=== PATIENT | male | born 1980 | race African-American/Black ===

== ENCOUNTER 2017-07-15 20:54 | Observation (INO) | payer SELFPAY ==
[~2017-07-15] VITALS: Ht 182.9 cm; Wt 70.8 kg
[~2017-07-15 20:54] MED LIST: NAPROSYN500 MG PO; NORVASC5 MG PO; TAM75CAP PO; ZOFRAN ODT4 MG SL
[2017-07-15] MEDS ORDERED: ZANTAC 150 PO (21:31)
[2017-07-15 22:08] LABS: IMMATURE GRANULOCYTES 0.8 % (0.0-1.0); MEAN CORPUSCULAR HGB 23.1 pG CALC (26.0-32.0); MEAN CORPUSCULAR HGB CONC 29.6 g/L CALC (32.0-36.0); NEUT# 5.7 thou/uL (1.82-7.42); RED BLOOD COUNT 3.64 mill/uL (4.70-6.10); RED CELL DISTRI WIDTH 16.9 % (11.5-15.5)
[2017-07-15 22:12] LABS: HEMATOCRIT 28.4 % (39.0-50.0); HEMOGLOBIN 8.4 g/dl (14.0-18.0)
[2017-07-15 22:23] LABS: ALBUMIN 3.8 g/dL (3.2-5.0); ALKALINE PHOSPHATASE 87 u/l (38-126); AMYLASE < 30 u/l (30-110); BILIRUBIN, TOTAL 0.2 mg/dL (0.0-1.4); BUN 15 mg/dL (9-20); BUN/CREATININE RATIO 17 (12-20 (CALC)); CARBON DIOXIDE 26 mmol/l (22-30); CHLORIDE 96 mmol/l (95-108); CREATININE 0.9 mg/dL (0.7-1.3); GFR > 60 ML/MIN (>=60 (CALC)); GFR FOR AFR.AMER. > 60 ML/MIN (>=60 (CALC)); LIPASE 31 u/l (23-300); SGOT/AST 17 u/l (17-59); SGPT/ALT 23 u/l (21-72); SODIUM 139 mmol/l (137-146)
[2017-07-15 22:25] LABS: ANION GAP 21 (6-22 (CALC)); POTASSIUM 3.5 mmol/l (3.5-5.1)
--- NOTE | 2017-07-15 22:27 | NUR ---
Critical Lactic acid level of 4.1 per Fuad in lab
--- NOTE | 2017-07-15 23:00 | NUR ---
PT STATES THAT PAIN IS SOMEWHAT BETTER. ASKING TO BE UNHOOKED FROM FLUIDS TO USE RESTROOM.
--- NOTE | 2017-07-16 00:05 | NUR ---
pt resting comfortably in room. Door closed, lights off. Pt says that he prefers to have covers over head.
--- NOTE | 2017-07-16 01:00 | NUR ---
Pt up to restroom. Asked if pt remembered urine for UA, Advised that he forgot about needing urine. Reassured staff that he will remember next time.
--- NOTE | 2017-07-16 02:00 | NUR ---
pt resting comfortably at this time. UA obtained and sent to lab. ED physician attmpting to admit pt with Diverticulitis.
[2017-07-16 02:02] LABS: URINE BILIRUBIN - DIPSTICK NEGATIVE (NEGATIVE); URINE BLOOD DIPSTICK NEGATIVE (NEGATIVE); URINE COLOR YELLOW; URINE GLUCOSE - DIPSTICK NEGATIVE (NEGATIVE); URINE KETONE NEGATIVE (NEGATIVE); URINE LEUK ESTERASE NEGATIVE (NEGATIVE); URINE NITRITE - DIPSTICK NEGATIVE (Negative); URINE PH 6.5 (4.5-8.0); URINE PROTEIN - DIPSTICK NEGATIVE (NEG-TRACE); URINE SPECIFIC GRAVITY <=1.005; URINE UROBILINOGEN - DIPSTICK 0.2 E.U./dL (0.2)
[2017-07-16 02:06] LABS: URINE CLARITY CLEAR
[2017-07-16 03:20] VITALS: BP 132/87
--- NOTE | 2017-07-16 03:30 | NUR ---
Report called to Brittany CARBAJAL @ [id number],report given and advised that only Flagyl will be given in the ED and the other antibiotic will have to be given on floor. Pt transprted to floor via emili.
--- NOTE | 2017-07-16 04:00 | NUR ---
PATIENT ADMITTED FROM ER VIA STRETCHER WITH ER STAFF IN ATTENDANCE. PATIENT TRANSFERRED TO STANDING SCALE AND THEN TO BR TO VOID-STEADY GAIT. PATIENT THEN WENT TO BED. PATIENT IS AWAKE ALERT AND ORIENTEDX3. INSTRUCTED NPO AT THIS TIME. IV SITE TO LEFT AC WITH LEVAQUIN INFUSING ORDERED. SITE APPEARS HEALTHY AT THIS TIME. PATIENT STATES THAT HE HAD BM YESTERDAY. ABD IS SOFT WITH BS+. PATIENT ORIENTED TO ROOM AND SURROUDINGS. INSTRUCTED ONUSE OF NURSE CALL LIGHT SYSTEM, TELEPHONE, AND TV REMOTE. SAFETY PRECAUTIONS REVIEWED WITH PATIENT. CALL LIGHT IN REACH. WILL CONT TO MONITOR.
--- NOTE | 2017-07-16 06:00 | NUR ---
PATIENT APPEARS SLEEPING AT THIS TIME WITH SHEETS OVER HIS HEAD. IVF D51/2NS PATENT AND INFUSING AT 125CC/HR. CALL LIGHT IN REACH. WILL CONT TO MONITOR.
[2017-07-16 08:10] VITALS: BP 136/85
--- NOTE | 2017-07-16 08:10 | NUR ---
PT RESTING IN SUPINE POSITION WITH FAMILY AT BEDSIDE;VS OBTAINED AND ASSESSMENT COMPLETED;RESPIRATIONS EVEN AND UNLABORED ON RA,CLEAR LUNG SOUNDS NOTED;ABDOMEN SOFT ON PALPATION;#20G TO LAC INFUSING D5 1/2 @ 125ML/HR,SITE APPEARS HEALTHY;PT VOICES NO COMPLAINTS OF PAIN OR DISCOMFORTS;PT RE-EDUCATED ON NPO DIET STATUS AND VERBALIZES UNDERSTANDING;SKIN INTACT;URINAL AT BEDSIDE;ENCOURAGED PT TO CALL FOR ASSISTANCE IF NEEDED;CALL LIGHT IN REACH;WILL CONTINUE TO MONITOR
[2017-07-16 10:18] LABS: IMMATURE GRANULOCYTES 0.2 % (0.0-1.0); MEAN CORPUSCULAR HGB 30.5 pG CALC (26.0-32.0); NEUT# 2.5 thou/uL (1.82-7.42); RED BLOOD COUNT 4.72 mill/uL (4.70-6.10); RED CELL DISTRI WIDTH 12.2 % (11.5-15.5)
[2017-07-16 10:26] LABS: HEMATOCRIT 42.4 % (39.0-50.0); HEMOGLOBIN 14.4 g/dl (14.0-18.0); MEAN CELL VOLUME 89.8 fL CALC (80.0-100.0)
[2017-07-16 10:50] LABS: BUN 5 mg/dL (9-20); BUN/CREATININE RATIO 5 (12-20 (CALC)); CARBON DIOXIDE 27 mmol/l (22-30); CREATININE 0.9 mg/dL (0.7-1.3); GFR > 60 ML/MIN (>=60 (CALC)); GFR FOR AFR.AMER. > 60 ML/MIN (>=60 (CALC)); MAGNESIUM 1.8 mg/dL (1.6-2.3); SODIUM 140 mmol/l (137-146)
[2017-07-16 10:51] LABS: ANION GAP 10 (6-22 (CALC)); CHLORIDE 108 mmol/l (95-108); POTASSIUM 4.5 mmol/l (3.5-5.1)
--- NOTE | 2017-07-16 12:30 | NUR ---
PT RESTING IN SEMI FOWLERS POSITION TOLERATING A CLEAR LIQUID DIET WELL;IV SITE PATENT INFUSING NS @ 100ML/HR;PT DENIES ANY PAIN OR DISCOMFORTS;ENCOURAGED TO CALL FOR ASSISTANCE IF NEEDED;CALL LIGHT IN REACH;WILL CONTINUE TO MONITOR
[2017-07-16] MEDS ORDERED: METRONIDAZOL500 MG PO (16:14)
[2017-07-16] MEDS ORDERED: CIPROFLOXACN500 MG PO (16:14)
[2017-07-16 16:41] VITALS: BP 131/87
--- NOTE | 2017-07-16 16:42 | NUR ---
Saw pt for discharge med education. Explained how meds work and cautioned against disulfiram-like rxn w/ metronidazole. Pt explained he doesn't drink anyway. Pt explained that he doesn't understand his diagnosis. Dr. Meyers and Ramonita were alerted. Pt had no further questions or concerns.
--- NOTE | 2017-07-16 17:15 | NUR ---
PT RESTING IN SEMI FOWLERS POSITION WATCHING TV;IV SITE PATENT;PT VOICES NO COMPLAINTS OF PAIN OR DISCOMFORTS;RESPIRATIONS EVEN AND UNLABORED ON RA;ENCOURAGED PO FLUIDS;CALL LIGHT IN REACH;WILL CONTINUE TO MONITOR
--- NOTE | 2017-07-16 17:43 | NUR ---
Discharge instructions given. Patient verbalizes understanding of same. Discharged in stable condition via Ambulatory to Home with family. All belongings sent with pt.
== END 2017-07-16 17:48 | disposition home or self-care (01) | DRG 392 ==
LOC: ED 20:54 → ED-I 07-16 02:10 → ED 07-16 02:26 → MS2 07-16 02:27
PROVIDERS: Emergency Medicine; Nurse Practitioner Family; ADMIT Internal Medicine; ATTEND Internal Medicine
DX: K52.9 Noninfective gastroenteritis and colitis, unspecified (principal); E87.2 Acidosis; D64.9 Anemia, unspecified; K40.90 Unilateral inguinal hernia, without obstruction or gangrene, not specified as recurrent; F17.210 Nicotine dependence, cigarettes, uncomplicated
CPT/HCPCS: G0378; J1956; S0164

== ENCOUNTER 2018-01-28 11:27 | Emergency (ER) | payer OTHER ==
[~2018-01-28] VITALS: Ht 182.9 cm; Wt 75.0 kg
[~2018-01-28 11:27] MED LIST changes: +CIPROFLOXACN500 MG PO; +METRONIDAZOL500 MG PO; +ZANTAC 150 PO
[2018-01-28] MEDS ORDERED: CYCLOBENZAPR5 MG PO (12:58)
[2018-01-28 13:21] VITALS: BP 132/98
== END 2018-01-28 13:24 | disposition home or self-care (01) | DRG 563 ==
LOC: ED 11:27
DX: S39.012A Strain of muscle, fascia and tendon of lower back, initial encounter (principal); M54.5 Low back pain; X50.0XXA Overexertion from strenuous movement or load, initial encounter; Y93.89 Activity, other specified; Y99.0 Civilian activity done for income or pay

== ENCOUNTER 2020-07-04 01:44 | Emergency (ER) | payer BC ==
[~2020-07-04] VITALS: Ht 182.9 cm; Wt 79.0 kg
[~2020-07-04 01:44] MED LIST changes: +CYCLOBENZAPR5 MG PO
[2020-07-04 03:38] LABS: URINE BILIRUBIN - DIPSTICK NEGATIVE (NEGATIVE); URINE BLOOD DIPSTICK NEGATIVE (NEGATIVE); URINE COLOR YELLOW; URINE GLUCOSE - DIPSTICK NEGATIVE (NEGATIVE); URINE KETONE NEGATIVE (NEGATIVE); URINE LEUK ESTERASE NEGATIVE (NEGATIVE); URINE NITRITE - DIPSTICK NEGATIVE (Negative); URINE PROTEIN - DIPSTICK 30 mg/dL (NEG-TRACE); URINE SPECIFIC GRAVITY >=1.030
[2020-07-04 03:41] LABS: HEMATOCRIT 48.2 % (39.0-50.0); HEMOGLOBIN 16.3 g/dl (14.0-18.0); IMMATURE GRANULOCYTES 0.2 % (0.0-5.0); MEAN CELL VOLUME 90.1 fL CALC (80.0-100.0); MEAN CORPUSCULAR HGB 30.5 pG CALC (26.0-32.0); MEAN CORPUSCULAR HGB CONC 33.8 g/dL CAL (32.0-36.0); NEUT# 2.51 thou/uL (1.82-7.42); RED BLOOD COUNT 5.35 mill/uL (4.70-6.10); RED CELL DISTRI WIDTH 12.8 % (11.5-15.5)
[2020-07-04] MEDS ORDERED: TRAZODONE100 MG PO (03:47)
[2020-07-04] MEDS ORDERED: NORVASC5 M1 PO (03:48)
[2020-07-04 03:51] LABS: URINE RBC 0-2 RBC/hpf (0-5); URINE SQUAMOUS EPITHELIAL CELL FEW EPI/hpf (0-FEW)
[2020-07-04 03:58] LABS: ALBUMIN 4.4 g/dL (3.2-5.0); ALKALINE PHOSPHATASE 60 u/l (38-126); AMYLASE 190 u/l (30-110); ANION GAP 10 (6-22 (CALC)); BUN 9 mg/dL (9-20); BUN/CREATININE RATIO 10 (12-20 (CALC)); CARBON DIOXIDE 27 mmol/l (22-30); CHLORIDE 101 mmol/l (95-108); CREATININE 0.9 mg/dL (0.7-1.3); ETHYL ALCOHOL 0 mg/dl (0-30); GFR > 60 ML/MIN (>=60 (CALC)); GFR FOR AFR.AMER. > 60 ML/MIN (>=60 (CALC)); LIPASE 63 u/l (23-300); POTASSIUM 4.3 mmol/l (3.5-5.1); SGOT/AST 17 u/l (17-59); SODIUM 134 mmol/l (137-146); TOTAL PROTEIN 6.9 g/dL (6.3-8.2)
[2020-07-04 04:00] LABS: BILIRUBIN, TOTAL 0.8 mg/dL (0.0-1.4)
[2020-07-04] MEDS ORDERED: ZOFRAN4 MG/TAB PO (04:50)
[2020-07-04] MEDS ORDERED: PROTONIX40 MG PO (04:50)
[2020-07-04 04:57] VITALS: BP 136/86
== END 2020-07-04 04:57 | disposition home or self-care (01) | DRG 392 ==
LOC: ED 01:44
DX: R10.13 Epigastric pain (principal); F17.290 Nicotine dependence, other tobacco product, uncomplicated; Z20.822 Contact with and (suspected) exposure to COVID-19
CPT/HCPCS: Q9967; S0164